=== PATIENT | male | born 1975 | race American Indian/Alaskan Native ===

== ENCOUNTER 2018-01-20 10:32 | Emergency (ER) | payer BC ==
--- NOTE | 2018-01-20 11:46 | Emergency Department Report ---
ED Head Trauma HPI - General Chief complaint: Earache Stated complaint: LFT EAR STOPPED UP/PAIN Time Seen by Provider: 01/20/18 11:33 Source: patient Mode of arrival: Ambulatory Limitations: No Limitations - Related Data Allergies/Adverse reactions: Allergies Allergy/AdvReac Type Severity Reaction Status Date / Time No Known Allergies Allergy Unverified 01/20/18 10:44 ED Review of Systems ROS: Stated complaint: LFT EAR STOPPED UP/PAIN Other details as noted in HPI ED Past Medical Hx - Past Medical History Additional medical history: HVI - Surgical History Past Surgical History?: No - Social History Smoking Status: Never Smoker Substance Use Type: Alcohol ED Physical Exam - General Limitations: No Limitations ED Course Vital Signs 01/20/18 10:44 Temperature 98.1 F Pulse Rate 70 Respiratory 18 Rate Blood Pressure 142/89 O2 Sat by Pulse 97 Oximetry - Lab Data Lab Results 01/20/18 Range/Units 10:49 POC Glucose 152 H (70-105) Critical care attestation.: If time is entered above; I have spent that time in minutes in the direct care of this critically ill patient, excluding procedure time. ED Disposition Condition: Stable Referrals: PRIMARY CARE [Primary Care Provider] - 3-5 Days
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
[2018-01-20 12:26] LABS: Bacteria,Urine 1+ /HPF (Negative); Bilirubin,Urine NEG (Negative); Blood,Urine NEG (Negative); Color,Urine Yellow (Yellow); Protein,Urine <15 mg/dL mg/dL (Negative); Urobilinogen,Urine < 2.0 mg/dL (<2.0)
[2018-01-20] MEDS ORDERED: HYDROGEN PEROXIDE ONE (12:56)
[2018-01-20] MEDS ORDERED: COLACE OT ONE (13:00)
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
[2018-01-20 15:01] VITALS: BP 136/76
== END 2018-01-20 15:07 | disposition home or self-care (01) ==
LOC: ED 10:32
DX: H61.23 Impacted cerumen, bilateral (principal); R35.0 Frequency of micturition
CPT/HCPCS: 81001; 82962; 99283